=== PATIENT | female | born 1945 | race Caucasian/White ===

== ENCOUNTER 2017-02-01 06:23 | Day surgery (SDC) | payer MEDICARE, OTHER ==
[~2017-02-01] VITALS: Ht 170.2 cm; Wt 136.1 kg
[2017-02-01 07:22] LABS: BASOPHILS 0.3 % (0-2); EOSINOPHILS 4.6 % (0-7); HEMATOCRIT 40.5 % (36.0-48.0); HEMOGLOBIN 12.5 g/dL (12-16); IMMATURE GRANULOCYTES 0.3 % (0-5); LYMPHOCYTES 39.2 % (15-50); MCH 30.9 pg (26.0-34.0); MCHC 30.9 g/dL (31.0-37.0); MCV 100.2 fL (80.0-100.0); MEAN PLATELET VOLUME 10.2 fL (7.4-10.4); MONOCYTES 7.3 % (2-11); NEUTROPHILS 48.3 % (40-80); PLATELET COUNT 163 10x3/uL (130-400); RBC 4.04 10x6/uL (4.00-5.40); WBC 7.9 10x3/uL (4.8-10.8)
[2017-02-01 07:29] LABS: APTT 25.8 SECONDS (22.8-39.4); INR 0.98 (0.85-1.17); PROTIME 12.9 SECONDS (11.6-15.0)
[2017-02-01 07:37] LABS: ANION GAP 18.1 mmol/L (8-16); CALCIUM 9.4 mg/dL (8.5-10.1); CREATININE - SERUM 5.4 mg/dL (0.6-1.3); POTASSIUM - SERUM 4.1 mmol/L (3.5-5.1)
[2017-02-01] MEDS ORDERED: RENVELA800 MG PO (08:29)
[2017-02-01] MEDS ORDERED: ZYRTEC10 MG PO (08:30)
[2017-02-01] MEDS ORDERED: METOPROLOL TART25 MG PO ×2 (08:31→08:33)
[2017-02-01] MEDS ORDERED: BUSPAR 15 MG TA15 MG PO (08:33)
[2017-02-01] MEDS ORDERED: ATARAX 25 MG TA25 MG PO (08:34)
[2017-02-01] MEDS ORDERED: ZOCOR20 MG PO (08:35)
[2017-02-01] MEDS ORDERED: PEPCID20 MG PO (08:35)
[2017-02-01 08:58] VITALS: BP 107/57; Ht 170.2 cm; Wt 136.1 kg
[2017-02-01] MEDS ORDERED: HYDROCODON-ACE1 EAC7 PO (16:05)
--- NOTE | 2017-02-01 16:07 | NUR ---
1545 BACK FROM FISTULOGRAM AMD LEFT FISTILA CREATION. AWAKE O2 AT 2 L N/C, ENCOURAGED TO COUGH AND DEEP BREATHE. RESP EVEN AND NONLABORED. DRESSING TO LEFT ARM A/C AREA WITH DRESSING C/D/I NO BLEEDING GOOD BRUIT.HAS ARM IN SLING HAS A BLOCK TO PREVENT IT FROM SLINGING NUMB. DENIES ARM PAIN. FINGERS SOME NUMB. TOLERATING ICE CHIPS. FAMILY PRESENT AND C/L IN REACH.
--- NOTE | 2017-02-01 18:50 | NUR ---
1630 TOLERATED DIET NO COS OF ARM PAIN AND BACK EASED. RESP EVEN AND NONLABORED GOOD BRUIT AND THRILL. FAMILY PRESENT.
--- NOTE | 2017-02-01 18:52 | NUR ---
1650 IV DCD CATHETER INTACT. WENT OVER DISCHARGE INSTRUCTIONS HAS SOME FEELING IN FINGERS. GOOD BRUIT AND THRILL LEFT ARM. DRESSING C/D/I NO BLEEDING.HAS ARM IN SLING. EXPLAINED BLOCK INFO AND NOT TO WEAR SLING ONCE FEELING IS BACK IN ARM. DISCHARGE INSTRUCTIONS UNDERSTOOD. ASSISTED WITH DRESSING PATIENT.
--- NOTE | 2017-02-01 18:54 | NUR ---
1700 TO HOME VIA W/C WITH FAMILY,
[2017-03-01] MEDS ORDERED: BAYER CHEWABLE81 MG PO (07:51)
[2017-03-01] MEDS ORDERED: PLAVIX75 MG PO (13:00)
== END 2017-02-01 17:00 | disposition home or self-care (01) ==
LOC: D.OPS 06:23
PROVIDERS: Surgery
DX: I13.2 Hypertensive heart and chronic kidney disease with heart failure and with stage 5 chronic kidney disease, or end stage renal disease (principal); N18.6 End stage renal disease; I50.9 Heart failure, unspecified; Z87.891 Personal history of nicotine dependence

== ENCOUNTER → 2017-03-01 06:13 | Day surgery (SDC) | payer MEDICARE, OTHER ==
[~2017-03-01] VITALS: Ht 170.2 cm; Wt 136.1 kg
[~2017-03-01 06:13] MED LIST: ATARAX 25 MG TA25 MG PO; BAYER CHEWABLE81 MG PO; BUSPAR 15 MG TA15 MG PO; HYDROCODON-ACE1 EAC7 PO; METOPROLOL TART25 MG PO; PEPCID20 MG PO; PLAVIX75 MG PO; RENVELA800 MG PO; ZOCOR20 MG PO; ZYRTEC10 MG PO
[2017-03-01 07:24] LABS: BASOPHILS 0.3 % (0-2); EOSINOPHILS 2.4 % (0-7); HEMATOCRIT 38.9 % (36.0-48.0); IMMATURE GRANULOCYTES 0.6 % (0-5); LYMPHOCYTES 34.8 % (15-50); MCH 31.1 pg (26.0-34.0); MCHC 30.8 g/dL (31.0-37.0); MCV 100.8 fL (80.0-100.0); MEAN PLATELET VOLUME 11.1 fL (7.4-10.4); MONOCYTES 11.1 % (2-11); NEUTROPHILS 50.8 % (40-80); PLATELET COUNT 174 10x3/uL (130-400); RBC 3.86 10x6/uL (4.00-5.40); RDW 15.6 % (11.5-14.5); WBC 10.3 10x3/uL (4.8-10.8)
[2017-03-01 07:33] LABS: ANION GAP 18.8 mmol/L (8-16); CARBON DIOXIDE 23.6 mmol/L (21.0-32.0); CREATININE - SERUM 6.6 mg/dL (0.6-1.3); POTASSIUM - SERUM 4.4 mmol/L (3.5-5.1)
[2017-03-01 07:44] LABS: APTT 24.9 SECONDS (22.8-39.4); INR 0.96 (0.85-1.17); PROTIME 12.6 SECONDS (11.6-15.0)
[2017-03-01 07:58] VITALS: Ht 170.2 cm; Wt 136.1 kg
--- NOTE | 2017-03-05 14:19 | OP ---
PATIENT NAME: FLY PALMER MEDICAL RECORD: [id number] :47 LOCATION:D.OPS ADMISSION DATE: SURGEON: DANIEL ROBINS MD OPERATION DATE: 03/01/17 SURGEON: Daniel Robins MD REFERRING PHYSICIAN: Efrain Stevenson M.D. PREOPERATIVE DIAGNOSES: 1. 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 2. End-stage renal disease and dependence upon chronic hemodialysis. 3. Morbid obesity. POSTOPERATIVE DIAGNOSES: 1. 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 2. End-stage renal disease and dependence upon chronic hemodialysis. 3. Morbid obesity. OPERATION PERFORMED: Percutaneous fistulogram with mechanical thrombolysis and angioplasty with ultrasound guided access, left upper extremity. Selective brachial artery catheterization and performance of brachial artery arteriogram. OPERATIVE FINDINGS: Mild stenosis of venous outflow anastomosis and a significant stenosis due to organized thrombus in the arterial anastomosis, about 70 percent diameter reducing. PREOPERATIVE NOTE: The patient is morbidly obese 71-year-old white female patient from [place], [place]. She is on routine chronic hemodialysis with a tunneled dialysis catheter and within the last three to four weeks I operated on her and implanted a PTFE graft in the brachial artery to axillary position in the left upper extremity. That initially worked quite well, but has now thrombosed. It has not yet been used. She is brought to the hospital today as an outpatient to try to open it up. PROCEDURE: Under anesthesia in the supine position, the patient was prepped and draped in a sterile manner. The graft was accessed in antegrade and retrograde directions with micropuncture technique and two 6-Urdu introducers were placed. The patient was heparinized with a total of 4000 units of heparin, in addition to local dilute heparin saline flushes. The AngioJet catheter over a Glidewire was lyse thrombus in the venous anastomosis and venous outflow tract. Contrast injection demonstrated a mild stenosis there at the venous anastomosis with more of an acute angle of the graft to vein than had been intended. This was "geometric imperfection". I used a Xochitl embolectomy balloon to remove some thrombus from the arterial anastomosis and performed balloon angioplasty with a 6 millimeter by 4 centimeter balloon which completed effaced and resulted in a complete clearance of the stenosis. Clot within the body of the graft was also lysed with repeated inflations of the angioplasty balloon. The arterial anastomosis was crossed with a Glidewire and a Julio César catheter. Contrast injection into the distal brachial artery demonstrated intact distal brachial and proximal radial and ulnar arteries without evidence of embolization. The arteries were small and additionally evidenced signs of segmental spasm. The guidewire and [place] catheter were then directed cephalad within the brachial artery and repeated contrast injection with digital subtraction technique revealed good flow in the brachial artery and its branches and occlusion of the arteriovenous graft just slightly above or distal to the arterial OPERATIVE REPORT [id number] FLY PALMER anastomosis. This was then cleared with repeated use of the Xochitl embolectomy catheter and the AngioJet. Repeat branchial artery contrast studies revealed wide open arterial anastomosis. The graft and arterial anastomosis had been dilated also with a 6 millimeter diameter balloon. Hand inflation technique was utilized and the balloon at all times deflated with minimal pressure required. The patient subsequently demonstrated good flow in the arteriovenous graft. I did not reverse her heparin. The introducers were removed and the puncture sites sutured with [id number] 4-0 Prolene and hemostasis obtained with a brief period of direct pressure with light gauze. Sterile dressings were applied of Tegaderm, Cavilon, and Avitene Ultrafoam. The patient's axillary incision from her recent operation was minimally ulcerated with persistent scab and hyperkeratotic debris and this was removed with moist gauze debridement leaving a clean granulating bed and a wound about a half a centimeter in diameter. It was subsequently dressed with some antibiotic ointment and clean bandage. The patient was awakened and with good Doppler continuous pulsatile flow in the arteriovenous graft, taken to the recovery room. Blood loss was on the order of 20 cc. None was replaced intraoperatively. All sponges, instruments, and needles were accounted for. No drain was used. No surgical specimen was submitted for histopathology. She will be given 150 milligrams of Plavix in the recovery room. I am E-prescribing a prescription to her pharmacy for Plavix 30 milligrams daily. I advised her to continue this indefinitely unless she has or develops contraindication to that medication. I believe that the new graft should be accessed for hemodialysis at the next opportunity either Saturday or Saturday or Saturday of next week. Two sutures in the left arm need to be removed also at the earliest opportunity in dialysis. I will not see her back in my office on a as needed basis as she lives too far away and I do not need to see her if all is going well. If there is a problem I will be happy to see her back either in my office or OPC or her in the outpatient department at [facility]. 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
== END | disposition home or self-care (01) ==
LOC: D.OPS 06:13
PROVIDERS: Internal Medicine Nephrology
DX: T82.868A Thrombosis due to vascular prosthetic devices, implants and grafts, initial encounter (principal); N18.6 End stage renal disease; Z99.2 Dependence on renal dialysis; E66.01 Morbid (severe) obesity due to excess calories; Z68.42 Body mass index [BMI] 45.0-49.9, adult; Z01.812 Encounter for preprocedural laboratory examination; I87.1 Compression of vein

== ENCOUNTER 2018-12-26 07:21 | Day surgery (SDC) | payer MEDICARE, OTHER ==
[~2018-12-26] VITALS: Ht 170.2 cm; Wt 136.1 kg
[2018-12-26 07:57] LABS: HEMATOCRIT 42.4 % (36.0-48.0); HEMOGLOBIN 12.8 g/dL (12-16); MCH 34.6 pg (26.0-34.0); MCHC 30.2 g/dL (31.0-37.0); MCV 114.6 fL (80.0-100.0); PLATELET COUNT 162 10x3/uL (130-400); RDW 16.3 % (11.5-14.5); WBC 9.7 10x3/uL (4.8-10.8)
[2018-12-26 08:07] LABS: ANION GAP 13.7 mmol/L (8-16); CALCIUM 8.2 mg/dL (8.5-10.1); CARBON DIOXIDE 32.3 mmol/L (21.0-32.0); CREATININE - SERUM 7.2 mg/dL (0.6-1.3)
[2018-12-26] MEDS ORDERED: MELATONIN 3 MG1 TAB PO (08:22)
[2018-12-26 08:23] LABS: INR 0.97 (0.85-1.17); PROTIME 12.4 SECONDS (11.6-15.0)
[2018-12-26] MEDS ORDERED: CARAFATE1 G PO (08:23)
[2018-12-26] MEDS ORDERED: MIDODRINE HCL10 MG PO (08:25)
[2018-12-26] MEDS ORDERED: HUMALOG MIX 75/23 ML SC (08:27)
[2018-12-26] MEDS ORDERED: ZOFRAN4 MG PO (08:28)
[2018-12-26] MEDS ORDERED: ZYLOPRIM100 MG PO (08:28)
[2018-12-26] MEDS ORDERED: PHENERGAN25 M1 PO (08:29)
[2018-12-26] MEDS ORDERED: RENVELA800 MG PO (08:31)
[2018-12-26 08:42] VITALS: Ht 170.2 cm; Wt 136.1 kg
[2018-12-26 09:06] LABS: ANISOCYTOSIS OCC; EOSINOPHILS 3 % (0-7); LYMPHOCYTES 47 % (15-50); MONOCYTES 8 % (2-11); NEUTROPHILS 38 % (40-80); PLATELET ESTIMATE NORMAL
[2018-12-26] MEDS ORDERED: ULTRAM50 MG PO (14:28)
--- NOTE | 2018-12-26 14:32 | NUR ---
FSBS 124
--- NOTE | 2018-12-26 14:55 | NUR ---
REC'D FROM RR. FAMILY AT BEDSIDE. GRAPE JUICE BROUGHT TO PATIENT. DRESSING TO SAI TURNER. SLING IN USE TO LEFT ARM.
--- NOTE | 2018-12-26 15:25 | NUR ---
C/O PAIN 8/10 TO HEMOSPLIT SITE.
--- NOTE | 2018-12-26 15:38 | NUR ---
ULTRAM 50MG PO ADMINISTERED FOR PAIN.
--- NOTE | 2018-12-26 15:40 | NUR ---
NURIA MERRITT SERVED TO PT.
--- NOTE | 2018-12-26 16:30 | NUR ---
TOLERATED FL TRAY. IV DC'D WITH CATHETER INTACT.
--- NOTE | 2018-12-26 16:40 | NUR ---
WRITTEN AND VERBAL DC INST. GIVEN TO PT ALONG WITH RX. VERBALIZED UNDERSTANDING.
--- NOTE | 2018-12-26 16:45 | NUR ---
PATIENT TRANSFERRING FROM BED TO AND GRAFT SITE STARTED TO BLEED. DRESSING CHANGED EXCEPT IODOFOAM LEFT IN PLACE AND COVERED WITH GAUGE AND SECURED WITH CLEAR DRESSING.
--- NOTE | 2018-12-26 17:05 | NUR ---
PATIENT'S SURGERY SITE MONITORED WITH NO ADDITIONAL BLEEDING NOTED. DC'D HOME WITH FAMILY VIA PRIVATE VEHICLE. TAKEN TO VEHICLE VIA PERSONAL WC. STABLE AT TIME OF DC.
--- NOTE | 2018-12-28 11:32 | OP ---
PATIENT NAME: FLY ARANA MEDICAL RECORD: [id number] :47 LOCATION:[facility] ADMISSION DATE: SURGEON: DANIEL ROBINS MD DATE OF OPERATION: 12/26/2018 PREOPERATIVE DIAGNOSES: End-stage renal disease and dependence on hemodialysis and mechanical complication of left arm arteriovenous graft. POSTOPERATIVE DIAGNOSES: End-stage renal disease and dependence on hemodialysis and mechanical complication of left arm arteriovenous graft. ADDITIONAL DIAGNOSIS: Morbid obesity. OPERATION PERFORMED: Ultrasound-guided insertion of a right internal jugular 23 cm long HemoSplit tunneled dialysis catheter followed by open revision of left arm AV graft with insertion of an Artegraft as a jump graft from the previous arterial anastomosis to the distal end of a stent in the venous outflow and the old PTFE graft. SURGEON: Daniel Robins MD ANESTHESIA: General endotracheal per [place]. REFERRING PHYSICIAN: Efrain Stevenson MD PREOPERATIVE NOTE: Ms. Arana is a 73-year-old super morbidly obese white female patient with end-stage renal disease, on chronic hemodialysis. She has been dialyzing for sometime now with a left arm brachiobasilic or brachial axillary PTFE AV graft. She has had several thrombotic episodes and has suffered some significant stenoses and aneurysmal dilatation or breakdown. There is a fairly large pseudoaneurysm of the graft in the juxta arterial anastomotic segment. I have advised that she have this graft revised and basically plan to replace it with a new jump graft around it. Under general anesthesia, the patient was prepped and draped in a sterile manner. I used ultrasound to locate the right internal jugular vein. It was fully compressible and normal in every way. An incision at the base of the neck was made and a micro needle and guidewire inserted under ultrasound guidance into the vein. A larger wire was inserted and over that, dilators were passed under fluoroscopy and lastly, then a peel-away introducer was inserted. I chose a 23-cm HemoSplit, made a small incision beneath the clavicle and pulled the new catheter from that site up to the cervical wound and inserted it then through the peel-away sheath. Fluoroscopy demonstrated excellent positioning of the catheter. Both lumens were accessed and aspirated, free return of blood confirmed. They were flushed with saline, then heparin locked, clamped and capped. The cervical incision was closed with interrupted inverted 3-0 Vicryl and Dermabond glue. The catheter was sutured to the skin with 2-0 Prolene and sterile dressings were applied. The left arm was approached next. An incision was made over the old arterial anastomosis and the brachial artery above and below and the anastomosis itself was dissected and controlled as needed with clamps and vascular loops. An incision was made higher on the arm over the venous outflow tract to expose the site where the venous outflow stent was palpable. 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 The resected aneurysm was sent to pathology. I chose a 6-mm standard Artegraft and after it was properly rinsed and prepared, it was sutured end-to-end to the cuff on the arterial anastomosis. This was done with 6-0 Prolene. After that, the graft was placed in a very superficial tunnel, which curved out lateral to the old graft and then came back to where it could be anastomosed. The old graft was transected and then another end-to-end anastomosis done with 6-0 Prolene. This actually was done to the very end of the stent in the PTFE. When that was complete, the suture lines were treated with BioGlue and the suture lines were hemostatic. With release of clamps and loops, excellent flow was established within the fistula and within the graft and within the brachial artery. The wounds were infiltrated with 0.25% Marcaine plain and closed with interrupted inverted 3-0 Vicryl and running intracuticular 4-0 Monocryl and Dermabond glue. They were dressed with Maxorb Ag, Tegaderm, and Cavilon skin prep. She was awakened and taken to the recovery room. Blood loss was about 10 cc, none replaced. No drain was used. All sponges, instruments and needles were accounted for. Surgical specimen consisted of the resected pseudoaneurysm of the AV graft. PLAN: I plan for her to go home today. She is given a prescription for tramadol 50 mg, 20 of them, she can take 1 p.o. q.4 hours p.r.n. pain and then she will be coming back to see me in my office week after next. TRANSINT:[id number] Voice Confirmation ID: [id number] DOCUMENT ID: [id number] DANIEL ROBINS MD at 1132 CC: EFRAIN STEVENSON [id number] DICTATION DATE: 12/26/18 1443 REINSURANCE CLAIM ANALYST: 12/26/18 1601 [facility] [place] 12/26/18 [id number] [place] [address]
== END 2018-12-26 17:05 | disposition home or self-care (01) ==
LOC: D.OPS 07:21
PROVIDERS: Anesthesiology; ATTEND Internal Medicine Nephrology
DX: T82.590A Other mechanical complication of surgically created arteriovenous fistula, initial encounter (principal); N18.6 End stage renal disease; Z99.2 Dependence on renal dialysis; E66.01 Morbid (severe) obesity due to excess calories; Z01.812 Encounter for preprocedural laboratory examination